=== PATIENT | female | born 1945 | race Caucasian/White ===

== ENCOUNTER 2017-12-03 10:35 | Day surgery (SDC) | payer OTHER, MEDICARE ==
[2017-12-02 11:47] VITALS: BMI 19.7
[2017-12-03] MEDS ORDERED: BUPIVACAINE HCL/PF 0.5% (5MG/ML) 10 ML VIAL IJ ONE (11:36)
[2017-12-03] MEDS ORDERED: POVIDONE-IODINE 5% OPHTHALMIC PREP 30 ML SOLUTION ONE (13:40)
[2017-12-03] MEDS ORDERED: TETRACAINE 0.5% OPHTH SOLN 2 ML BOTTLE ONE (13:40)
[2017-12-03] MEDS ORDERED: BACITRACIN 3.5 GM OPTHALMIC OINT TUBE ONE (13:40)
[2017-12-03] MEDS ORDERED: LIDOCAINE 1%/EPI 1:100000 (20 ML MULTI DOSE VIAL) ONE ×2 (13:40→15:23)
[2017-12-03] MEDS ORDERED: OXYMETAZOLINE 0.05% NASAL SOLUTION 15 ML BOTTLE NS ONE ×2 (13:40→15:42)
[2017-12-03] MEDS ORDERED: MIDAZOLAM HCL 2 MG/2 ML SINGLE DOSE VIAL ONE (13:45)
[2017-12-03] MEDS ORDERED: BUPIVACAINE HCL/PF 2.5 MG/ML - 30 ML VIAL IJ ONE (14:13)
[2017-12-03] MEDS ORDERED: BUPIVACAINE HCL/PF 0.5% (5MG/ML) 10 ML VIAL ONE (14:14)
[2017-12-03] MEDS ORDERED: DEXAMETHASONE SOD PHOSPHATE 4 MG/1 ML VIAL ONE (14:27)
[2017-12-03] MEDS ORDERED: ONDANSETRON 4 MG/2 ML VIAL ONE ×2 (14:27→16:08)
[2017-12-03] MEDS ORDERED: ceFAZolin SODIUM 1 GM VIAL ONE (14:31)
[2017-12-03] MEDS ORDERED: LIDOCAINE 1%/EPI 1:100000 (20 ML MULTI DOSE VIAL) IJ ONE ×2 (14:36→14:38)
[2017-12-03] MEDS ORDERED: TETRACAINE 0.5% OPHTH SOLN 2 ML BOTTLE OD ONE (14:36)
[2017-12-03] MEDS ORDERED: BACITRACIN 50,000 UNITS VIAL TP ONE (14:42)
[2017-12-03] MEDS ORDERED: THROMBIN (BOVINE) 5,000 UNIT VIAL TP ONE (14:42)
[2017-12-03] MEDS ORDERED: BACITRACIN 3.5 GM OPTHALMIC OINT TUBE OD ONE ×2 (14:42→15:42)
[2017-12-03] MEDS ORDERED: GELATIN, ABSORBABLE 100 EACH SPONGE TP ONE ×2 (14:42→15:01)
[2017-12-03] MEDS ORDERED: ePHEDrine SULFATE 50 MG/1 ML AMPULE ONE (14:46)
[2017-12-03] MEDS ORDERED: oxyCODONE HCL 5 MG TABLET PO PRN ×2 (15:07)
[2017-12-03] MEDS ORDERED: ONDANSETRON 4 MG/2 ML VIAL IVPUSH PRN (15:07)
[2017-12-03] MEDS ORDERED: PROMETHAZINE HCL 25 MG/1 ML VIAL IVPB PRN (15:41)
[2017-12-03 16:15] VITALS: TEMP 97.6
[2017-12-03 16:37] VITALS: PULSE 85
[2017-12-03] MEDS ORDERED: oxyCODONE HCL 5 MG TABLET ONE (17:37)
[2017-12-03 18:21] VITALS: BP 118/70
--- NOTE | 2017-12-04 09:06 | OP ---
DATE OF OPERATION: 12/03/2017 PREOPERATIVE DIAGNOSIS: Nasolacrimal obstruction, right lower lid retraction, right ectropion right lower lid, and epiphora. POSTOPERATIVE DIAGNOSIS: Nasolacrimal obstruction, right lower lid retraction, ectropion right lower lid, and epiphora. PROCEDURE: 1. External dacryocystorhinostomy right. 2. Silicone intubation right lacrimal system. 3. Lacrimal sac biopsy. 4. Endoscopy. SURGEON: Huma Blake MD ELASTIC YARN TWISTER HELPER: None. ANESTHESIA: LMA. COMPLICATIONS: None. ESTIMATED BLOOD LOSS: Was 10-20 mL. OPERATIVE REPORT: Patient brought to the operating room, place on the operating room table. Vital signs monitored by Anesthesia. Tetracaine was placed in both eyes. She was placed under LMA anesthesia. Tear trough incision was marked with a sterile marking pen. Timeout was performed and the patient was then given subcutaneous injection of 2% Xylocaine with 1:100,000 epinephrine and 0.5% Marcaine in a 50:50 mixture for total of 4 mL to 5 mL in the nasal third of the upper and lower lid, the tear trough down to the anterior lacrimal crest, and the lateral wall of the nose. In addition, under direct visualization, the right naris was visualized, and the middle turbinate, the middle meatal mucosa, the external naris, and the septum were all injected. All procedures performed on the right side including the injections. Following this, the patient was prepped and draped in the usual sterile fashion, exposing both eyes and the nose. The right nose had been tacked with cottonoids, moistened with Afrin following the injection into the nose. The left eye was taped closed with Steri-Strips. A tear trough incision was made with a 15 blade down to skin and subcutaneous tissue, and gentle spreading with a hemostat carried this incision down to the internal lacrimal crest. Blunt dissection was carried out with cotton-tip applicators. The anterior limb of the medial canthal tendon was identified, following which the periosteum and anterior limb of the medial canthal tendon were slightly incised to the bone, and then the periosteum was reflected laterally as well as the lacrimal sac fossa penetrated posterior to the lacrimal bone, axillary bone and suture line and then upbiting Kerrison rongeurs were used to create an osteotomy centered on the lacrimal sac fossa extending from the medial canthal tendon down to the nasolacrimal duct and removing the anterior lacrimal crest. Nasal mucosa was removed, and this permitted entry into the middle meatus of the nose. The septum was deviated toward the osteotomy and, therefore, was partially contused during the procedure. Following this, the upper and lower punctate were dilated. A small amount of Gelfoam and packing were placed for hemostasis. The probes were used to tent the sac medially, and the sac was opened medially at its medial surface with a 12 blade and Angie scissors. The sac was solid and scarred. Anterior and posterior lacrimal sac flaps were created. The posterior lacrimal sac flap was biopsied, sent for pathology. The anterior lacrimal sac was secured with a double-armed 5-0 chromic suture and this would be later secured to the periosteum anterior to the osteotomy site. Prior to doing so, the system was intubated with Fuller probes, and the Fuller probes were retrieved with a Fuller hook through the upper and lower punctum and brought out through the right external naris. The anterior lacrimal sac flap was now sutured to the periosteum anterior to the osteotomy and was reinforced with 2 interrupted 4-0 chromic sutures. The deep muscular tissues were closed with 5-0 chromic or 6-0 chromic, and the skin was closed with running 6-0 plain with plastic technique supplemented with interrupted 6-0 plain. Antibiotic irrigation was used throughout the case. Minimal cautery was used. Following this, the stents were removed from the probes, and the stents were tied with a locking knot and secured to the right external nares with a single 6-0 Prolene suture with minimal tension on the loop and the right medial canthus. The endoscope was then introduced and the nose was suctioned, and the high nasal septal deviation to the right was visualized; however, the endoscope could be advanced between the septum and the lateral nose and the internal where the tubes were entering, middle meatus was demonstrated. This completed the operation. Afrin was sprayed in the nose. Bacitracin ointment was placed on the sutures, and the patient was taken to the recovery room in stable condition. HUMA BLAKE M.D. [id number]
--- NOTE | 2017-12-09 15:28 | PATH ---
Surgical Pathology Report Patient Name: TIMMY JORDAN [facility]. Rec. #: [id number] /Age/Gender: 1945 (Age: 72) / F Account: [id number] Location: COUNTS INCLUDE 234 BEDS AT THE [facility] Taken: 12/04/2017 Received: 12/04/2017 Reported: 12/09/2017 Physicians: Enrike Riley Specimen(s) Received A: RIGHT LACRIMAL SAC B: NASAL BONE Clinical History Blocked tear duct, right eye Final Diagnosis A. LACRIMAL SAC, RIGHT, EXCISION: SCANT FIBROVASCULAR TISSUE. B. NASAL BONE, EXCISION: PORTIONS OF BONE WITH NO PATHOLOGIC FINDINGS. Electronically Signed Jayda Yarbrough M.D. Gross Description A. Received in formalin, labeled "right lacrimal sac" is a scant portion of brown-pathak soft tissue measuring up to 0.1 cm. in greatest dimension. Entirely submitted entirely in one cassette (note: specimen may fail to processing). B. Received in formalin, labeled "nasal bone" are multiple pathak portions of bony-appearing tissue having an aggregate of 0.5 x 0.4 x 0.2 cm. Entirely submitted in one cassette after brief decalcification. ZEYAD/12/05/2017 susi/12/05/2017
== END 2017-12-03 18:21 | disposition home or self-care (01) ==
LOC: FASU 10:35
PROVIDERS: ATTEND Ophthalmology
PROC: 08BX0ZZ Excision of Right Lacrimal Duct, Open Approach (ICD-10-PCS; 2017-12-03)
PROC: 087X0ZZ Dilation of Right Lacrimal Duct, Open Approach (ICD-10-PCS; 2017-12-03)
PROC: 09JK8ZZ Inspection of Nasal Mucosa and Soft Tissue, Via Natural or Artificial Opening Endoscopic (ICD-10-PCS; 2017-12-03)
PROC: 081X0Z3 Bypass Right Lacrimal Duct to Nasal Cavity, Open Approach (ICD-10-PCS; principal; 2017-12-03 14:42)
DX: H04.5 Stenosis and insufficiency of lacrimal passages (principal); H02.102 Unspecified ectropion of right lower eyelid; H04.201 Unspecified epiphora, right side; H02.532 Eyelid retraction right lower eyelid
CPT/HCPCS: 88304-TC; 88311-TC; 94760

== ENCOUNTER 2018-05-27 06:12 | Day surgery (SDC) | payer OTHER, MEDICARE ==
[2018-05-27 06:55] VITALS: BMI 19.7
[2018-05-27] MEDS ORDERED: ERYTHROMYCIN 0.5% OPHTHALMIC OINTMENT 3.5 GM TUBE ONE (07:15)
[2018-05-27] MEDS ORDERED: BSS (NA/CA/MG/K) BALANCED SALT SOLUTION OPHTH SOLN 15 ML BOTTLE ONE ×2 (07:15→08:57)
[2018-05-27] MEDS ORDERED: TETRACAINE 0.5% OPHTH SOLN 2 ML BOTTLE ONE (07:15)
[2018-05-27] MEDS ORDERED: LIDOCAINE 1%/EPI 1:100000 (20 ML MULTI DOSE VIAL) ONE (07:16)
[2018-05-27] MEDS ORDERED: BUPIVACAINE HCL/PF 0.5% (5MG/ML) 10 ML VIAL ONE (07:16)
[2018-05-27] MEDS ORDERED: MIDAZOLAM HCL 2 MG/2 ML SINGLE DOSE VIAL ONE (07:26)
[2018-05-27] MEDS ORDERED: THROMBIN (BOVINE) 5,000 UNIT VIAL TP ONE ×2 (07:40→09:12)
[2018-05-27] MEDS ORDERED: OXYMETAZOLINE 0.05% NASAL SOLUTION 15 ML BOTTLE NS ONE ×2 (07:40→09:27)
[2018-05-27] MEDS ORDERED: POVIDONE-IODINE 5% OPHTHALMIC PREP 30 ML SOLUTION ONE (07:40)
[2018-05-27] MEDS ORDERED: PROPOFOL 20 ML ONE ×3 (07:57)
[2018-05-27] MEDS ORDERED: SUCCINYLCHOLINE CHLORIDE 200 MG/10 ML VIAL ONE (07:57)
[2018-05-27] MEDS ORDERED: MITOMYCIN 0.02% EYE DROPS - 2ML VIAL IO ONE (08:00)
[2018-05-27] MEDS ORDERED: DEXAMETHASONE SOD PHOSPHATE 4 MG/1 ML VIAL ONE ×2 (08:04→09:08)
[2018-05-27] MEDS ORDERED: ceFAZolin SODIUM 1 GM VIAL ONE (08:04)
[2018-05-27] MEDS ORDERED: ONDANSETRON 4 MG/2 ML VIAL ONE ×2 (08:04→09:08)
[2018-05-27] MEDS ORDERED: PHENYLEPHRINE HCL 10 MG/1 ML SINGLE DOSE VIAL ONE (08:29)
[2018-05-27] MEDS ORDERED: BUPIVACAINE HCL 0.25% 125 MG/50 ML VIAL ONE (09:07)
[2018-05-27] MEDS ORDERED: GELATIN, ABSORBABLE 100 EACH SPONGE TP ONE (09:11)
[2018-05-27] MEDS ORDERED: ONDANSETRON 4 MG/2 ML VIAL IVPUSH PRN (09:58)
[2018-05-27] MEDS ORDERED: oxyCODONE HCL 5 MG TABLET PO PRN (09:58)
[2018-05-27] MEDS ORDERED: LACTATED RINGERS SOLUTION 1,000 ML IV SCH (10:00)
[2018-05-27 10:50] VITALS: TEMP 97.5
[2018-05-27] MEDS ORDERED: oxyCODONE HCL 5 MG TABLET ONE (10:57)
[2018-05-27 11:54] VITALS: PULSE 60
[2018-05-27 12:00] VITALS: BP 126/66
--- NOTE | 2018-05-27 13:01 | OP ---
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 PROCEDURE: 1. External dacryocystorhinostomy, right. 2. Lacrimal sac biopsy, right. 3. Partial middle turbinectomy, right. 4. Silicone intubation, right lacrimal system. 5. Topical adjuvant mitomycin. 6. Endoscopy. SURGEON: Huma Blake MD ANESTHESIA: LMA. COMPLICATIONS: None. ESTIMATED BLOOD LOSS: 20-30 mL. OPERATIVE REPORT: The patient was brought to the operating room and placed on the operating room table. Vital signs were monitored by Anesthesia. Time-out was performed. She was placed under LMA anesthesia. A line was marked in the right tear trough. Tetracaine was placed in both eyes. The left eye was closed manually throughout the case. After the time-out was performed, a 50/50 mixture of 2% Xylocaine, 1:100,000 epinephrine, and 0.5% Marcaine was injected in the tear trough, lateral wall of the nose, anterior lacrimal crest and also nasal artery and nasal third of the upper and lower lid for hemostasis. Under direct visualization, the middle meatus and middle turbinate were injected and then the left nostril was packed with cottonoids moistened with Afrin. The patient was prepped and draped in the usual sterile fashion, exposing both eyes. The left eye was closed manually. Incision was made through the tear trough and then through the scar tissue just below the skin surface. Spreading with Smith scissors was used to attain the anterior lacrimal crest. The periosteum over the anterior lacrimal crest was incised and reflected laterally and medially, and then the entire lacrimal sac fossa was exposed by reflecting the orbital tissues and the lacrimal sac tissues off of the bone. This was done any mucosal anastomosis from the prior osteotomy site. Hemostasis was achieved with cautery and the cottonoids were soaked with thrombin throughout the case. Antibiotic irrigation was used throughout the case. At this point, upbiting Kerrison rongeurs were used to widen the osteotomy a small amount both superiorly and anteriorly. This resulted in a wide osteotomy and the ability to create a long anterior nasal mucosal flap, which was incised and from any posterior nasal mucosa. The upper and lower punctae were now dilated and intubated with probes, tenting the medial wall sac medially. Then, the sac was opened on its medial surface with a probe with a 12 blade. Posterior and anterior lacrimal sac flaps were created with relaxing incisions. The posterior lacrimal sac flap was biopsied. The anterior lacrimal sac flap had scarring and was scarred to the lateral wall of the sac and this was dissected free. The upper and lower punctae were intubated with probes, demonstrating the passage of the probes through the internal common canaliculus and any scarring in this area was removed. There was a minimal area of scarring in the internal common canaliculus. Most of the scarring was over the sac proper. The middle turbinate was seen to be impinging on the posterior wall of the osteotomy and would not allow reflection of the posterior lacrimal sac flap fully posteriorly. Therefore, the anterior portion of the middle turbinate was removed with Kerrisons, cautery and packing. Cottonoids were used for hemostasis in this area. At this point, the nose was packed with cottonoids, as was the wound posterior to the sac, and a pledget soaked in 0.2 mg/mL of mitomycin was now placed in the lacrimal sac and allowed to stay there for 3 minutes. It was then removed. Three to four changes of irrigation were used with suction to remove any remnants of mitomycin from the lacrimal sac. The eye was irrigated as well as an extra precaution. Once mitomycin had been removed from the area, the lacrimal system was intubated with Fuller probes. These were treated with Fuller hooks in the right external areas after all of the packing had been removed and intubating the system. Silicone was seen to move freely through the system without obstruction. The anterior lacrimal sac flap was now sutured to the anterior nasal mucosal flap with a mattress 5-0 chromic suture, which was also sutured to the periosteum anterior to the osteotomy site to prevent the anterior lacrimal sac flap from falling posteriorly toward the common canaliculus opening. An additional interrupted 4-0 chromic was placed superiorly over the silicone entrance to obliterate any view of the silicone stents without obstructing them. The muscle layer was closed with 5-0 chromic and the skin with a running 6-0 plain suture in plastic technique and supplemented with interrupted 6-0 plain. The stents were removed from the probes, tied with locking knots, and secured to the left external area with a single 6-0 Prolene suture with minimal tension on the loop in the left medial canthus. An endoscope was introduced demonstrating good entrance of the silicone stents into the middle meatus without impingement. Afrin was sprayed in the nose. Erythromycin was placed on all the sutures and the patient was taken to the recovery room in stable condition. HUMA BLAKE M.D. [id number]
--- NOTE | 2018-05-28 16:35 | PATH ---
Surgical Pathology Report Patient Name: TIMMY JORDAN [facility]. Rec. #: [id number] /Age/Gender: 1945 (Age: 72) / F Account: [id number] Location: [facility] Taken: 05/27/2018 Received: 05/27/2018 Reported: 05/28/2018 Physicians: Enrike Riley Specimen(s) Received RIGHT LACRIMAL SAC BIOPSY Clinical History Right blocked tear duct Final Diagnosis LACRIMAL SAC, RIGHT, BIOPSY: LACRIMAL SAC TISSUE SHOWING CHRONIC INFLAMMATION AND DENSE FIBROSIS. Electronically Signed Jayda Yarbrough M.D. Gross Description Received in formalin, labeled "right lacrimal sac biopsy" is a pathak, irregular portion of soft tissue measuring 0.5 cm. in greatest dimension. The specimen is submitted in toto in one cassette. /05/27/201805/27/2018
== END 2018-05-27 11:58 | disposition home or self-care (01) ==
LOC: FASU 06:12
PROVIDERS: ATTEND Ophthalmology
PROC: 081X0Z3 Bypass Right Lacrimal Duct to Nasal Cavity, Open Approach (ICD-10-PCS; principal; 2018-05-27 08:27)
DX: H04.551 Acquired stenosis of right nasolacrimal duct (principal); H04.201 Unspecified epiphora, right side
CPT/HCPCS: 88305-TC; 94760